=== PATIENT | female | born 1945 | race Caucasian/White ===

== ENCOUNTER 2019-12-06 14:33 | Inpatient (IN) | payer MEDICARE, OTHER ==
[~2019-12-06] VITALS: Ht 160 cm; Wt 59.0 kg
[2019-12-06] MEDS ORDERED: IV NORMAL SALINE 1000 ML BAG IV ONE (14:45)
[2019-12-06] MEDS ORDERED: ACETAMINOPHEN 650 MG SUPP.RECT RC ONE ×2 (14:45→14:52)
[2019-12-06 15:15] LABS: BASOPHILS % (AUTO) 0.2 % (0.0-2.0); HEMATOCRIT 38.8 % (31.2-41.9); HEMOGLOBIN 12.9 g/dL (10.9-14.3); LYMPHOCYTES # (AUTO) 0.5 K/uL (20.0-40.0); LYMPHOCYTES % (AUTO) 7.6 % (20.5-51.5); MEAN CORPUSCULAR HEMOGLOBIN 32.9 uug (24.7-32.8); MEAN CORPUSCULAR HGB CONC 33 g/dL (32.3-35.6); MEAN CORPUSCULAR VOLUME 98.9 fL (75.5-95.3); MONOCYTES # (AUTO) 0.4 K/uL (2.0-10.0); MONOCYTES % (AUTO) 6.1 % (0.0-11.0); NEUTROPHILS # (AUTO) 5.7 K/uL (1.8-8.9); NEUTROPHILS % (AUTO) 86.1 % (38.5-71.5); PLATELET COUNT (AUTO) 111 K/uL (179-408); RED BLOOD CELL COUNT(AUTO) 3.92 MIL/uL (3.63-4.92); WHITE BLOOD COUNT (AUTO) 6.6 K/uL (3.8-11.8)
[2019-12-06 15:24] LABS: CREATININE 0.8 mg/dL (0.6-1.3); POTASSIUM 3.2 mmol/L (3.5-5.1)
[2019-12-06] MEDS ORDERED: SENN-261 PO (15:25)
[2019-12-06] MEDS ORDERED: ACET325T53 PO (15:25)
[2019-12-06] MEDS ORDERED: MELA3TAB41 PO (15:25)
[2019-12-06] MEDS ORDERED: SERT50TA PO (15:25)
[2019-12-06] MEDS ORDERED: RISP1TAB7 PO (15:25)
[2019-12-06] MEDS ORDERED: RISP0.5T5 PO (15:25)
[2019-12-06] MEDS ORDERED: OXYB5TAB16 PO (15:25)
[2019-12-06] MEDS ORDERED: UREA85CR23 TP (15:25)
[2019-12-06] MEDS ORDERED: GABA-532 PO (15:25)
[2019-12-06] MEDS ORDERED: MAGN400O6 PO (15:25)
[2019-12-06] MEDS ORDERED: CRAN425C6 PO (15:25)
[2019-12-06] MEDS ORDERED: MEMA10TA PO (15:25)
[2019-12-06] MEDS ORDERED: LEVO50TA8 PO (15:25)
[2019-12-06] MEDS ORDERED: DIVA500T2 PO (15:25)
[2019-12-06 15:30] LABS: BILIRUBIN,DIRECT 0.1 mg/dL (0.0-0.2); BILIRUBIN,TOTAL 0.5 mg/dL (0.2-1.0)
[2019-12-06 16:00] LABS: *BLOOD, URINE 1+ (NEGATIVE); *CLARITY,URINE CLEAR (CLEAR); *COLOR,URINE DARK YELLOW (YELLOW); *KETONES,URINE 1+ (NEGATIVE); *UROBILINOGEN,URINE 0.2 E.U./dl (NORMAL); LEUKOCYTE ESTERASE ,URINE NEGATIVE (NEGATIVE); NITRITE, URINE NEGATIVE (NEGATIVE); UGLUCOSE NEGATIVE (NEGATIVE)
[2019-12-06] MEDS ORDERED: CEFTRIAXONE 1 G in IV DEXTROSE 5% 50 ML IV ONE (16:00)
[2019-12-06 16:03] LABS: *BILIRUBIN,URIN 1+ (NEGATIVE)
[2019-12-06 16:12] LABS: MUCUS,URINE FEW /LPF (0-FEW); SQUAMOUS EPITHELIAL CELL,UR FEW /HPF (NONE SEEN)
[2019-12-06 16:13] LABS: BACTERIA,URINE MODERATE /HPF (NONE SEEN)
[2019-12-06] MEDS ORDERED: CEFTRIAXONE /D5W 50ML IVPB **ER PYXIS IV ONE (16:15)
--- NOTE | 2019-12-06 17:12 | NUR ---
pt transfered to floor in stable condition. pt remained comfortable, resting, arousable the whole er stay. no sign of distress.
[2019-12-06] MEDS ORDERED: HYDROCODONE/APAP 5-325MG TABLET PO PRN (17:15)
[2019-12-06] MEDS ORDERED: ACETAMINOPHEN 325 MG TABLET PO PRN (17:15)
[2019-12-06] MEDS ORDERED: Z GUARD REMEDY PASTE 57 GM TUBE TOP PRN (17:15)
[2019-12-06] MEDS ORDERED: MAGNESIUM HYDROXIDE 30 ML LIQUID UDC PO PRN (17:15)
[2019-12-06] MEDS ORDERED: ONDANSETRON 4 MG/2 ML VIAL IV PRN (17:15)
--- NOTE | 2019-12-06 17:25 | NUR ---
RECEIVED FOR ADMISSION 74 YEARS OLD FEMALE BY MARLENY TO ROOM 114 WITH DX OF SE[address]IS [address] INTO BED FIXED AND MADE COMFORTABLE PATIENT IS CONFUSED AND DISORIENTED NON VERBAL MAKES NOISES THAT MIMICKS CRYING TURNED AND REPOSITIONED MADE COMFORTABLE WILL CONTINUE TO OBSERVE.
[2019-12-06] MEDS: IV D5 1/2 NS 1000 ML 1,000 ML IV PRN (19:03)
[2019-12-06 20:14] VITALS: BP 100/34
[2019-12-06] MEDS: GABAPENTIN 100 MG CAPSULE PO SCH (21:36)
[2019-12-06] MEDS: Z GUARD REMEDY PASTE 57 GM TUBE TOP SCH (21:37)
[2019-12-06] MEDS: ENOXAPARIN SODIUM 40 MG/0.4 ML DISP.SYRIN SQ SCH (21:39)
[2019-12-07 00:21] VITALS: BP 105/42
[2019-12-07 04:00] VITALS: BP 96/49
[2019-12-07] MEDS: IV D5 1/2 NS 1000 ML 1,000 ML IV PRN ×2 (06:29→18:17)
[2019-12-07] MEDS: LEVOTHYROXINE SODIUM 50 MCG TABLET PO SCH (06:46)
[2019-12-07] MEDS: PANTOPRAZOLE SODIUM 40 MG TABLET.DR PO SCH (06:46)
--- NOTE | 2019-12-07 07:31 | NUR ---
PATIENT IS IN BED ASLEEP WITH EYES CLOSED SEEMS QUIET AT THIS TIME WITH IVF IN PROGRESS ORDERED INFUSING TO HER LEFT FOREARM WITH NO S/S OF INFILTERATION ON SITE.REPOSITIONED FOR COMFORT HEELS FLOATED MADE COMFORTABLE WILL CONTINUE TO OBSERVE.
[2019-12-07] MEDS: SENNOSIDES 1 TABLET PO SCH (08:54)
[2019-12-07] MEDS: SERTRALINE HCL 50 MG TABLET PO SCH (08:54)
[2019-12-07] MEDS: DIVALPROEX 500 MG TABLET.DR PO SCH ×2 (08:56→16:27)
[2019-12-07] MEDS: OXYBUTYNIN CHLORIDE 5 MG TABLET PO SCH (08:57)
[2019-12-07] MEDS: risperiDONE 0.5 MG TABLET PO SCH (08:57)
[2019-12-07] MEDS: MEMANTINE HCL 10 MG TABLET PO SCH ×2 (08:57→16:27)
[2019-12-07] MEDS: Z GUARD REMEDY PASTE 57 GM TUBE TOP SCH ×2 (08:58→21:00)
[2019-12-07 11:24] VITALS: BP 111/48
[2019-12-07] MEDS: risperiDONE 1 MG TABLET PO SCH (12:18)
--- NOTE | 2019-12-07 13:00 | NUR ---
PATIENT ASSISTED SPOON FED LUNCH SHE IS CONFUSED RESISTIVE AT TIMES ATE ABOUT 75% OF HER FOOD SEEMS A LITTLE BIT AWARE REPOSITIONED FOR COMFORT HEELS FLOATED MADE COMFORTABLE WILL CONTINUE TO OBSERVE.
--- NOTE | 2019-12-07 15:11 | NUR ---
CLINICAL PHARMACY NOTE: VANCOMYCIN DOSING Request for vancomycin dosing on 74y/o female 160.02cm 58.96kg for UTI enterococcus Temp 98.4 BUN 21 SCr 0.8 WBC 6.6 Start Vancomycin 1gm ivpb q20hr estimated trough 15.6. Waiting for sensitivity report. If vancomycin to be continue will order trough level prior to 4th dose. Will continue to monitor
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
[2019-12-07 15:33] VITALS: BP 98/44
[2019-12-07] MEDS ORDERED: CEFTRIAXONE 1 G in IV DEXTROSE 5% 50 ML IV SCH (16:00)
[2019-12-07] MEDS: VANCOMYCIN IV 1,000 MG in IV DEXTROSE 5% 250 ML IV SCH (16:40)
--- NOTE | 2019-12-07 18:00 | NUR ---
REMAIN ON ANTIBIOTICS ORDERED WITH NO ADVERSE OR ALLERGIC REACTIONS AT THIS TIME APPETITE WAS FAIR FOR DINNER SLT WAS HERE TO SEE PATIENT STATED UNABLE TO COMPLETE HER EVALUATION SEE HER NOTES.WILL CONTINUE TO OBSERVE AND PROVIDE SAFE AND THERAPEUTIC ENVIRONMENT AT ALL TIMES
[2019-12-07 19:57] VITALS: BP 101/58
[2019-12-07] MEDS: ENOXAPARIN SODIUM 40 MG/0.4 ML DISP.SYRIN SQ SCH (20:59)
[2019-12-07] MEDS: GABAPENTIN 100 MG CAPSULE PO SCH (21:00)
[2019-12-07] MEDS: ZOLPIDEM 5 MG TABLET PO PRN (21:20)
[2019-12-08 04:56] VITALS: BP 102/49
--- NOTE | 2019-12-08 05:11 | NUR ---
patient received lying in bed watching TV. no signs of acute distress and v/s stable throughout shift. safety and comfort measures provided at all times. bed in lowest position, side rails upx2, and bed alarm on. all needs med and medications administered. will endorse care accordingly.
[2019-12-08] MEDS: IV D5 1/2 NS 1000 ML 1,000 ML IV PRN ×2 (05:26→22:25)
[2019-12-08] MEDS: PANTOPRAZOLE SODIUM 40 MG TABLET.DR PO SCH (06:00)
[2019-12-08] MEDS: LEVOTHYROXINE SODIUM 50 MCG TABLET PO SCH (06:00)
--- NOTE | 2019-12-08 07:10 | NUR ---
RECEIVED PATIENT IN BED, ASLEEP, OPENS EYES TO NAME. CONFUSED. NO S/S OF DISTRESS OR PAIN SEEN AT THIS TIME. LT. FA IV INTACT WITH FLUIDS RUNNING. SAFETY AND FALL PREVENTION IN PLACE. CALL LIGHT IN REACH, BED IN LOW AND LOCKED POSITION, SIDE RAILS UP X2. WILL CONTINUE TO MONITOR.
[2019-12-08] MEDS: risperiDONE 0.5 MG TABLET PO SCH (08:34)
[2019-12-08] MEDS: SENNOSIDES 1 TABLET PO SCH (08:34)
[2019-12-08] MEDS: OXYBUTYNIN CHLORIDE 5 MG TABLET PO SCH (08:35)
[2019-12-08] MEDS: SERTRALINE HCL 50 MG TABLET PO SCH (08:35)
[2019-12-08] MEDS: DIVALPROEX 500 MG TABLET.DR PO SCH ×2 (08:36→17:41)
[2019-12-08] MEDS: MEMANTINE HCL 10 MG TABLET PO SCH ×2 (08:36→17:42)
[2019-12-08] MEDS: Z GUARD REMEDY PASTE 57 GM TUBE TOP SCH ×2 (08:37→21:41)
[2019-12-08 11:25] VITALS: BP 113/39
[2019-12-08 11:52] LABS: BASOPHILS % (AUTO) 0.2 % (0.0-2.0); EOSINOPHILS % (AUTO) 0.2 % (0.0-7.0); HEMATOCRIT 36.8 % (31.2-41.9); HEMOGLOBIN 12.3 g/dL (10.9-14.3); LYMPHOCYTES # (AUTO) 1.1 K/uL (20.0-40.0); LYMPHOCYTES % (AUTO) 24.2 % (20.5-51.5); MEAN CORPUSCULAR HEMOGLOBIN 32.8 uug (24.7-32.8); MEAN CORPUSCULAR HGB CONC 33 g/dL (32.3-35.6); MONOCYTES # (AUTO) 0.4 K/uL (2.0-10.0); MONOCYTES % (AUTO) 8.5 % (0.0-11.0); NEUTROPHILS # (AUTO) 3.1 K/uL (1.8-8.9); NEUTROPHILS % (AUTO) 66.9 % (38.5-71.5); PLATELET COUNT (AUTO) 105 K/uL (179-408); RED BLOOD CELL COUNT(AUTO) 3.75 MIL/uL (3.63-4.92); WHITE BLOOD COUNT (AUTO) 4.7 K/uL (3.8-11.8)
[2019-12-08] MEDS: VANCOMYCIN IV 1,000 MG in IV DEXTROSE 5% 250 ML IV SCH (12:01)
[2019-12-08] MEDS: risperiDONE 1 MG TABLET PO SCH (12:01)
[2019-12-08 12:03] LABS: CREATININE 0.6 mg/dL (0.6-1.3); MAGNESIUM 1.9 mg/dL (1.8-2.4); PHOSPHOROUS 2.6 mg/dL (2.5-4.9); POTASSIUM 3.4 mmol/L (3.5-5.1)
[2019-12-08 12:15] LABS: THYROID STIMULATING HORMONE 2.612 mIU/mL (0.358-3.740)
[2019-12-08] MEDS: NITROFURANTOIN/NITROFURAN MAC 100 MG CAPSULE PO SCH ×2 (14:00→21:39)
[2019-12-08 15:10] VITALS: BP 100/50
--- NOTE | 2019-12-08 19:39 | NUR ---
PATIENT IN BED, ASLEEP, OPENS EYES TO NAME. CONFUSED. NO S/S OF DISTRESS OR PAIN SEEN THROUGHOUT SHIFT. SAFETY AND FALL PREVENTION IN PLACE. CALL LIGHT IN REACH, BED IN LOW AND LOCKED POSITION, SIDE RAILS UP X2. WILL REPORT GIVEN TO NIGHT NURSE
--- NOTE | 2019-12-08 20:00 | NUR ---
PATIENT RECEIVED INTO CARE SLEEPING IN BED, RESTING COMFORTABLY. PATIENT HAS NO SIGNS OR SYMPTOMS OF ACUTE DISTRESS OR DISCOMFORT NOTED OR OBSERVED BY NURSE. ALL SAFETY AND FALL PRECAUTION MEASURES ARE IN PLACE. CALL LIGHT AND PERSONAL ITEMS ARE WITHIN REACH AT ALL TIMES. WILL CONTINUE TO MONITOR AND ASSESS.
[2019-12-08 20:46] VITALS: BP 111/50
--- NOTE | 2019-12-08 20:54 | NUR ---
Notified MD Estrella of platelet count of 105 with regard to prescribed lovenox 40mg (0.4mL) and should nurse hold 2100h dose. said okay to give.
[2019-12-08] MEDS: GABAPENTIN 100 MG CAPSULE PO SCH (21:39)
[2019-12-08] MEDS: ENOXAPARIN SODIUM 40 MG/0.4 ML DISP.SYRIN SQ SCH (21:41)
[2019-12-09 05:37] VITALS: BP 117/63
[2019-12-09] MEDS: LEVOTHYROXINE SODIUM 50 MCG TABLET PO SCH (06:22)
[2019-12-09] MEDS: PANTOPRAZOLE SODIUM 40 MG TABLET.DR PO SCH (06:22)
--- NOTE | 2019-12-09 08:00 | NUR ---
RECEIVED PATIENT IN BED, ASLEEP, OPENS EYES TO NAME. CONFUSED. NO S/S OF ACUTE DISTRESS, SOB OR PAIN SEEN AT THIS TIME. LT. FA IV INTACT WITH FLUIDS RUNNING. SAFETY AND FALL PREVENTION IN PLACE. CALL LIGHT IN REACH, BED IN LOW AND LOCKED POSITION, SIDE RAILS UP X2. WILL CONTINUE TO MONITOR FOR SAFETY AND COMFORT.
[2019-12-09] MEDS: SERTRALINE HCL 50 MG TABLET PO SCH (09:25)
[2019-12-09] MEDS: SENNOSIDES 1 TABLET PO SCH (09:25)
[2019-12-09] MEDS: risperiDONE 0.5 MG TABLET PO SCH (09:27)
[2019-12-09] MEDS: DIVALPROEX 500 MG TABLET.DR PO SCH ×2 (09:27→17:26)
[2019-12-09] MEDS: NITROFURANTOIN/NITROFURAN MAC 100 MG CAPSULE PO SCH ×2 (09:27→20:24)
[2019-12-09] MEDS: OXYBUTYNIN CHLORIDE 5 MG TABLET PO SCH (09:28)
[2019-12-09] MEDS: MEMANTINE HCL 10 MG TABLET PO SCH ×2 (09:28→17:26)
[2019-12-09] MEDS: Z GUARD REMEDY PASTE 57 GM TUBE TOP SCH ×2 (09:34→21:13)
[2019-12-09 11:16] VITALS: BP 115/52
--- NOTE | 2019-12-09 12:00 | NUR ---
PATIENT ASSISTED SPOON FED LUNCH SHE IS CONFUSED COMBATIVE AT TIMES ATE ABOUT 75% OF HER FOOD SEEMS A LITTLE BIT AWARE REPOSITIONED FOR COMFORT HEELS FLOATED MADE COMFORTABLE WILL CONTINUE TO OBSERVE.
[2019-12-09] MEDS: IV D5 1/2 NS 1000 ML 1,000 ML IV PRN (12:10)
[2019-12-09] MEDS: risperiDONE 1 MG TABLET PO SCH (12:24)
[2019-12-09 15:10] VITALS: BP 107/50
--- NOTE | 2019-12-09 18:00 | NUR ---
PT RESTING COMFORTABLY IN BED. PT SOMEWHAT CONFUSED. PT RE-ORIENTED. NO ACUTE DISTRESS OR SOB NOTED. BED LOCKED AND IN LOW POSITION. CALL LIGHT WITHIN REACH. PSYCH CONSULT ORDERED BY DR RASMUSSEN. IV PATENT AND FLUSHED. IVF RUNNING. WILL ENDORSE TO INCOMING SHIFT ACCORDINGLY.
--- NOTE | 2019-12-09 20:21 | NUR ---
Patient received into care, sitting up in bed, resting comfortably. Patient has no signs/symptoms of acute distress or discomfort noted or observed by nurse. All safety and fall precaution measures are in place. Call light and personal items are within reach at all times. Will continue to monitor and assess.
[2019-12-09] MEDS: GABAPENTIN 100 MG CAPSULE PO SCH (20:25)
[2019-12-09] MEDS: ZOLPIDEM 5 MG TABLET PO PRN (20:25)
--- NOTE | 2019-12-09 20:30 | NUR ---
Contacted HEBREW TEACHER Delores with regard to prescribed Lovenox 40mg (0.4mL) and patient's plt of 105 which was last drawn on 12/07/2019. Nurse will withhold until further direction by HEBREW TEACHER.
--- NOTE | 2019-12-09 21:30 | NUR ---
Per Delores, he is not water conservationist. Contacted MD Kirkland who advised to d/c lovenox for this patient.
[2019-12-10] MEDS: IV D5 1/2 NS 1000 ML 1,000 ML IV PRN ×2 (01:52→15:25)
[2019-12-10 04:20] VITALS: BP 117/62
--- NOTE | 2019-12-10 05:39 | NUR ---
Called [facility], advised of face sheet fax for psych consult requested by MD Kirkland. Face sheet faxed successfully. Addendum: 12/10/19 at 0540 by CAROLINA PAULSON RN Spoke with JAYME Miller in [facility]
[2019-12-10] MEDS: PANTOPRAZOLE SODIUM 40 MG TABLET.DR PO SCH (06:01)
[2019-12-10] MEDS: LEVOTHYROXINE SODIUM 50 MCG TABLET PO SCH (06:01)
[2019-12-10 06:58] LABS: BILIRUBIN,TOTAL 0.3 mg/dL (0.2-1.0); CREATININE 0.7 mg/dL (0.6-1.3); PHOSPHOROUS 2.9 mg/dL (2.5-4.9); POTASSIUM 3.5 mmol/L (3.5-5.1)
[2019-12-10 07:34] LABS: BASOPHILS % (AUTO) 0.3 % (0.0-2.0); EOSINOPHILS % (AUTO) 0.8 % (0.0-7.0); HEMATOCRIT 34.2 % (31.2-41.9); HEMOGLOBIN 11.7 g/dL (10.9-14.3); LYMPHOCYTES # (AUTO) 1.3 K/uL (20.0-40.0); LYMPHOCYTES % (AUTO) 27.9 % (20.5-51.5); MEAN CORPUSCULAR HEMOGLOBIN 33.1 uug (24.7-32.8); MEAN CORPUSCULAR HGB CONC 34 g/dL (32.3-35.6); MEAN CORPUSCULAR VOLUME 96.8 fL (75.5-95.3); MONOCYTES # (AUTO) 0.4 K/uL (2.0-10.0); MONOCYTES % (AUTO) 7.8 % (0.0-11.0); NEUTROPHILS # (AUTO) 3.1 K/uL (1.8-8.9); NEUTROPHILS % (AUTO) 63.2 % (38.5-71.5); PLATELET COUNT (AUTO) 131 K/uL (179-408); RED BLOOD CELL COUNT(AUTO) 3.53 MIL/uL (3.63-4.92); WHITE BLOOD COUNT (AUTO) 4.8 K/uL (3.8-11.8)
--- NOTE | 2019-12-10 08:00 | NUR ---
Received patient awake in bed. Arousable to name and touch. No s/s of acute distress. IV on L wrist intact with D5 1/2NS running at 75mls/hr. Safety measures implemented. Bed alarm on. Will continue to monitor.
[2019-12-10] MEDS: SENNOSIDES 1 TABLET PO SCH (08:35)
[2019-12-10] MEDS: MEMANTINE HCL 10 MG TABLET PO SCH ×2 (08:35→17:10)
[2019-12-10] MEDS: risperiDONE 0.5 MG TABLET PO SCH (08:35)
[2019-12-10] MEDS: OXYBUTYNIN CHLORIDE 5 MG TABLET PO SCH (08:35)
[2019-12-10] MEDS: DIVALPROEX 500 MG TABLET.DR PO SCH ×2 (08:35→17:10)
[2019-12-10] MEDS: SERTRALINE HCL 50 MG TABLET PO SCH (08:35)
[2019-12-10] MEDS: NITROFURANTOIN/NITROFURAN MAC 100 MG CAPSULE PO SCH (08:35)
[2019-12-10] MEDS: Z GUARD REMEDY PASTE 57 GM TUBE TOP SCH (08:36)
[2019-12-10 11:06] VITALS: BP 129/60
[2019-12-10] MEDS: risperiDONE 1 MG TABLET PO SCH (12:17)
[2019-12-10 15:20] VITALS: BP 105/38
[2019-12-10] MEDS ORDERED: MENT71OI TOP (18:27)
[2019-12-10] MEDS ORDERED: MULT1TAB73 PO (18:27)
[2019-12-10] MEDS ORDERED: NITR100C11 PO (18:27)
[2019-12-10] MEDS ORDERED: ACET325T53 PO (18:27)
[2019-12-10] MEDS ORDERED: PANT40TA2 PO (18:27)
[2019-12-11] MEDS ORDERED: PANT40TA4 PO (01:26)
[2019-12-11] MEDS ORDERED: MENT71OI TP (01:26)
[2019-12-11] MEDS ORDERED: NITR100C6 PO (01:26)
[2019-12-11] MEDS ORDERED: MULT1TAB73 PO (01:26)
--- NOTE | 2019-12-14 13:56 | NUR ---
WOUND CARE CONSULT: DIFFICULT ASSESSMENT DUE TO PT BEING UNCOOPERATIVE AND COMBATIVE AT TIMES. PT PRESENTS WITH SACRAL UNSTAGEABLE ULCER AND INCONTINENCE ASSOCIATED SKIN DAMAGE TO PERIWOUND AREA, PRESENT ON ADMISSION. RECOMMENDATIONS MADE FOR WOUND CARE AND SKIN PROTECTION. DISCUSSED WITH NURSING STAFF. RECOMMEND SURGICAL CONSULT. DR JOVANI SOTOMAYOR NOTIFIED OF CONSULT REQUEST. WILL SEE PRN. GARCIA IN AGREEMENT WITH PLAN OF CARE. Addendum: 12/14/19 at 1404 by DANETTE WEISS RN PLEASE DISREGARD ABOVE NOTE.
== END 2019-12-10 19:30 | DRG 871 ==
LOC: ER 14:33 → TELE3 17:06 → MEDSURG3 12-07 23:05
PROVIDERS: ATTEND Internal Medicine
DX: A41.9 Sepsis, unspecified organism (principal); G92 Toxic encephalopathy; N39.0 Urinary tract infection, site not specified; E44.0 Moderate protein-calorie malnutrition; J44.0 Chronic obstructive pulmonary disease with (acute) lower respiratory infection; D68.59 Other primary thrombophilia; R62.7 Adult failure to thrive; E03.9 Hypothyroidism, unspecified; Z79.890 Hormone replacement therapy; R50.9 Fever, unspecified; Z66 Do not resuscitate; B95.2 Enterococcus as the cause of diseases classified elsewhere; E87.6 Hypokalemia; F32.9 Major depressive disorder, single episode, unspecified; I70.0 Atherosclerosis of aorta; I10 Essential (primary) hypertension; Z87.891 Personal history of nicotine dependence; J20.8 Acute bronchitis due to other specified organisms; Z87.440 Personal history of urinary (tract) infections; Z79.899 Other long term (current) drug therapy; D75.89 Other specified diseases of blood and blood-forming organs; Z74.09 Other reduced mobility; G31.84 Mild cognitive impairment of uncertain or unknown etiology; K21.9 Gastro-esophageal reflux disease without esophagitis
CPT/HCPCS: 36415; 70030-TC; 71045; 83605; 83735; 84100; 84443; 85025; 85730; 87040; 87077; 87086; 87400; 93005; A4663; C1758; G0378; J0696; J1650; J3370; J3490; J7030; J7060

== ENCOUNTER 2019-12-10 20:14 | Inpatient (IN) | payer MEDICARE, OTHER ==
[~2019-12-10] VITALS: Ht 160 cm; Wt 55.8 kg
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
[~2019-12-10 20:14] MED LIST: ACET325T53 PO; CRAN425C6 PO; DIVA500T2 PO; GABA-532 PO; LEVO50TA8 PO; MAGN400O6 PO; MELA3TAB41 PO; MEMA10TA PO; MENT71OI TOP; MULT1TAB73 PO; NITR100C11 PO; OXYB5TAB16 PO; PANT40TA2 PO; RISP0.5T5 PO; RISP1TAB7 PO; SENN-261 PO; SERT50TA PO; UREA85CR23 TP
[2019-12-10] MEDS ORDERED: CLONAZEPAM 0.5 MG TABLET PO SCH (20:30)
[2019-12-10] MEDS ORDERED: MAG HYDROX/AL HYDROX/SIMETH 30 ML LIQUID UDC PO PRN (20:30)
[2019-12-10] MEDS ORDERED: BLOOD SUGAR DIAGNOSTIC 1 EACH STRIP VI ONE (20:30)
[2019-12-10] MEDS ORDERED: MAGNESIUM HYDROXIDE 30 ML LIQUID UDC PO PRN (20:30)
[2019-12-10 21:07] VITALS: BP 134/58
[2019-12-10] MEDS: LORAZEPAM 0.5 MG TABLET PO PRN (21:35)
--- NOTE | 2019-12-10 22:36 | NUR ---
PHARMACY NOTE PRN FOR AGITATION/ANXIETY ADMINISTERED @2135. UNABLE TO SCAN/ LOT# DIFFICULT TO READ. PACKAGE TORN AND DISCARDED.
[2019-12-11] MEDS ORDERED: MENT71OI TP (01:26)
[2019-12-11] MEDS ORDERED: MULT1TAB73 PO (01:26)
[2019-12-11] MEDS ORDERED: NITR100C6 PO (01:26)
[2019-12-11] MEDS ORDERED: PANT40TA4 PO (01:26)
[2019-12-11] MEDS: LORAZEPAM 0.5 MG TABLET PO PRN ×2 (09:01→17:38)
[2019-12-11] MEDS ORDERED: DIVALPROEX 500 MG TABLET.DR PO SCH (17:00)
[2019-12-11] MEDS ORDERED: DIVALPROEX 250 MG TABLET.DR PO SCH ×2 (17:00)
[2019-12-11] MEDS: DIVALPROEX 125 MG TABLET.DR PO SCH (17:37)
[2019-12-11 20:38] VITALS: BP 116/56
[2019-12-11] MEDS: risperiDONE 0.5 MG TABLET PO SCH (21:09)
[2019-12-11] MEDS: TEMAZEPAM 7.5 MG CAPSULE PO PRN (23:34)
[2019-12-12] MEDS: LORAZEPAM 0.5 MG TABLET PO PRN ×2 (06:45→19:27)
[2019-12-12 07:30] VITALS: BP 127/71
[2019-12-12] MEDS: risperiDONE 0.5 MG TABLET PO SCH ×2 (08:00→20:27)
[2019-12-12] MEDS: DIVALPROEX 125 MG TABLET.DR PO SCH ×2 (08:00→16:02)
--- NOTE | 2019-12-12 13:59 | NUR ---
GPS: CALLED AND NOTIFY DR. RASMUSSEN REGARDING [facility]A RESULT WAITING FOR REPLY
--- NOTE | 2019-12-12 14:40 | NUR ---
Received patient up in theo chair this am. Assisted with feedings, vijay care given. Ambulated patient in hallway with standby assist , tolerate well.. Patient went outside for 30 min, continues to be confused and aggressive at times. Easily redirected when having bouts of crying. Patients words are garbled and mostly incomprehensible. Continuing to monitor patient for safety and meet patients needs.
[2019-12-12] MEDS ORDERED: Z GUARD REMEDY PASTE 57 GM TUBE TP SCH (14:45)
[2019-12-12] MEDS ORDERED: Z GUARD REMEDY PASTE 57 GM TUBE TOP PRN (14:45)
[2019-12-12 15:01] VITALS: BP 93/47
[2019-12-12] MEDS: NITROFURANTOIN/NITROFURAN MAC 100 MG CAPSULE PO SCH ×2 (15:06→20:23)
[2019-12-12] MEDS ORDERED: FLUCONAZOLE 100 MG TABLET PO ONE (15:15)
[2019-12-12 20:22] VITALS: BP 129/81
[2019-12-12] MEDS: ACETAMINOPHEN 325 MG TABLET PO PRN (20:26)
[2019-12-12] MEDS: MELATONIN 3 MG TABLET PO SCH (20:27)
[2019-12-12] MEDS: GABAPENTIN 100 MG CAPSULE PO SCH (20:27)
[2019-12-13] MEDS: LEVOTHYROXINE SODIUM 50 MCG TABLET PO SCH (06:07)
[2019-12-13] MEDS: Z GUARD REMEDY PASTE 57 GM TUBE TP PRN (06:35)
[2019-12-13 07:30] VITALS: BP 103/61
--- NOTE | 2019-12-13 08:48 | NUR ---
Received patient asleep in assigned bed. Bed is in low position and locked. Patient is arousable to name and light touch. Patient is confused, disoriented, unable to maintain conversation with this field underwriter. Patient noted to be in bed frequently crying, does not verbalize to this field underwriter reason for crying. Patient requires assistance with ambulation, self care, feeding, and ADL's. Patient is encouraged to communicate her needs appropriately and educated about impulse control. Patient provided with redirection and reality orientation. Will continue to monitor.
[2019-12-13] MEDS ORDERED: Medication Not On Formulary EA (Multivitamins (Multivitamin) 1 EACH) PO SCH (09:00)
[2019-12-13] MEDS: NITROFURANTOIN/NITROFURAN MAC 100 MG CAPSULE PO SCH ×2 (09:23→20:19)
[2019-12-13] MEDS: SENNOSIDES 1 TABLET PO SCH (09:23)
[2019-12-13] MEDS: PANTOPRAZOLE SODIUM 40 MG TABLET.DR PO SCH (09:23)
[2019-12-13] MEDS: risperiDONE 0.25 MG TABLET PO SCH ×2 (09:23→12:57)
[2019-12-13] MEDS: DIVALPROEX 125 MG TABLET.DR PO SCH ×3 (09:23→16:53)
[2019-12-13] MEDS: MULTIVITAMINS,THERAPEUTIC TABLET PO SCH (09:23)
[2019-12-13] MEDS: OXYBUTYNIN CHLORIDE 5 MG TABLET PO SCH (10:17)
--- NOTE | 2019-12-13 13:34 | NUR ---
Social Work/Initial Discharge Note: Patient currently resides at [facility] Address: [address] [place] [address] . Patient will return back to facility upon discharge. SW will continue to work with patient, family, and MD to ensure a safe and proper discharge plan.
--- NOTE | 2019-12-13 13:35 | NUR ---
Social Work/Family Contact: food counter worker spoke with patient son/DPOA Joshua Hernandez ([phone]) who gave collateral information regarding patient's history and current status. Joshua's , Meseret sent this contract technical writer DPOA documentation re-Joshua SIMPSON for all healthcare decisions.
--- NOTE | 2019-12-13 13:44 | NUR ---
Social Work/Firearms Report ([employer]): [employer]ra[employer] Laborer completed and submitted a [employer] firearms report for 5250 grave disability certification. A copy of report has been placed in patient chart.
[2019-12-13 15:21] VITALS: BP 115/68
[2019-12-13] MEDS: LORAZEPAM 0.5 MG TABLET PO PRN (19:18)
[2019-12-13 19:58] VITALS: BP 122/84
[2019-12-13] MEDS: risperiDONE 0.5 MG TABLET PO SCH (20:19)
[2019-12-13] MEDS: GABAPENTIN 100 MG CAPSULE PO SCH (20:19)
[2019-12-13] MEDS: MELATONIN 3 MG TABLET PO SCH (20:20)
[2019-12-14] MEDS: LEVOTHYROXINE SODIUM 50 MCG TABLET PO SCH (06:02)
[2019-12-14] MEDS: LORAZEPAM 0.5 MG TABLET PO PRN ×2 (07:25→14:59)
--- NOTE | 2019-12-14 09:23 | NUR ---
Received patient awake, crying, and restless sitting in chair. Patient is alert and oriented to person only. patient requires reality orientation to time, place, and situation. Patient requires assistance with ADL's and feeding. Patient is unable to make her needs known to staff due to confusion and disorientation. Patient is medication adherent, no adverse reaction noted. Will continue to monitor.
[2019-12-14] MEDS: SENNOSIDES 1 TABLET PO SCH (10:02)
[2019-12-14] MEDS: risperiDONE 0.25 MG TABLET PO SCH ×2 (10:02→12:48)
[2019-12-14] MEDS: PANTOPRAZOLE SODIUM 40 MG TABLET.DR PO SCH (10:02)
[2019-12-14] MEDS: DIVALPROEX 125 MG TABLET.DR PO SCH (10:02)
[2019-12-14] MEDS: OXYBUTYNIN CHLORIDE 5 MG TABLET PO SCH (10:02)
[2019-12-14] MEDS: MULTIVITAMINS,THERAPEUTIC TABLET PO SCH (10:02)
[2019-12-14 11:18] VITALS: BP 104/59
--- NOTE | 2019-12-14 14:04 | NUR ---
WOUND CARE CONSULT: PT PRESENTS WITH SACRAL UNSTAGEABLE ULCER, PRESENT ON ADMISSION. PT IS INCONTINENT. VERY DIFFICULT ASSESSMENT DUE TO PT UNCOOPERATIVE AND COMBATIVE AT TIMES. RECOMMENDATIONS MADE FOR WOUND CARE AND SKIN PROTECTION. DISCUSSED WITH NURSING STAFF. SURGICAL CONSULT RECOMMENDED. DR JOVANI SOTOMAYOR NOTIFIED OF CONSULT REQUEST. WILL SEE PRN. GARCIA IN AGREEMENT WITH PLAN OF CARE.
[2019-12-14 15:00] VITALS: BP 122/62
[2019-12-14] MEDS: DIVALPROEX SPRINKLE 125 MG CAP.SPRINK PO SCH (17:00)
[2019-12-14] MEDS: risperiDONE 0.5 MG TABLET PO SCH (20:42)
[2019-12-14] MEDS: GABAPENTIN 100 MG CAPSULE PO SCH (20:42)
[2019-12-14] MEDS: ACETAMINOPHEN 325 MG TABLET PO PRN (20:42)
[2019-12-14] MEDS: MELATONIN 3 MG TABLET PO SCH (20:43)
--- NOTE | 2019-12-14 22:00 | NUR ---
received to care, lying in bed, yelling intermittently. she calmed down, after taking her bedtime medications, plus PRN tylenol. repositioned q 2 hours, with pillows for support. compliant with snacks, and po fluids. no aggressive behavior noted. as of 0, she appears to be asleep. no distress noted. will continue to monitor closely.
[2019-12-15] MEDS: LORAZEPAM 0.5 MG TABLET PO PRN ×3 (02:58→19:25)
[2019-12-15] MEDS: ACETAMINOPHEN 325 MG TABLET PO PRN (02:58)
--- NOTE | 2019-12-15 06:00 | NUR ---
slept 6.25 hours, total.
[2019-12-15] MEDS: LEVOTHYROXINE SODIUM 50 MCG TABLET PO SCH (06:07)
[2019-12-15 07:30] VITALS: BP 113/49
[2019-12-15] MEDS: PANTOPRAZOLE SODIUM 40 MG TABLET.DR PO SCH (08:14)
[2019-12-15] MEDS: DIVALPROEX SPRINKLE 125 MG CAP.SPRINK PO SCH ×2 (08:14→17:22)
[2019-12-15] MEDS: SENNOSIDES 1 TABLET PO SCH (08:14)
[2019-12-15] MEDS: risperiDONE 0.25 MG TABLET PO SCH ×2 (08:14→12:27)
[2019-12-15] MEDS: OXYBUTYNIN CHLORIDE 5 MG TABLET PO SCH (08:15)
[2019-12-15] MEDS: MULTIVITAMINS,THERAPEUTIC TABLET PO SCH (08:15)
[2019-12-15] MEDS ORDERED: OLANZAPINE 10 MG VIAL IM ONE (13:15)
--- NOTE | 2019-12-15 14:20 | NUR ---
Patient continuously trying to jump out of bed. Walking in hallway very combative. Dr. Sotelo notified and order received for Zyprexa 3mg IM. Patient tolerated injection well. Continuing to monitor patient for safety and monitor respiratory status closely. No acute distress at this time.
--- NOTE | 2019-12-15 18:11 | NUR ---
Patient calmer now. Up in the Lorin chair at nurses station eating dinner. Monitoring for safety.
[2019-12-15 20:00] VITALS: BP 106/60
[2019-12-15] MEDS: MELATONIN 3 MG TABLET PO SCH (21:38)
[2019-12-15] MEDS: risperiDONE 0.5 MG TABLET PO SCH (21:38)
[2019-12-15] MEDS: GABAPENTIN 100 MG CAPSULE PO SCH (21:38)
--- NOTE | 2019-12-15 23:30 | NUR ---
received to care, up in theo chair, yelling intermittently, difficult to redirect. she calmed down, after taking her bedtime medications, plus PRN ativan, at 1924. repositioned q 2 hours, with pillows for support. compliant with snacks, and po fluids. no aggressive behavior noted. as of 2329, she appears to be asleep, in bed. no dsitress noted. will continue to monitor closely.
[2019-12-16] MEDS: LORAZEPAM 0.5 MG TABLET PO PRN ×2 (05:25→20:11)
[2019-12-16] MEDS: ACETAMINOPHEN 325 MG TABLET PO PRN (05:25)
--- NOTE | 2019-12-16 05:25 | NUR ---
pt is now awake, yelling, and restless. assisted with AM care, and shower. PRN ativan was given, at this time. currently up in gerichair, watching tv. will continue to monitor closely.
--- NOTE | 2019-12-16 05:52 | NUR ---
slept 2 hours total. is calmer, now. appears to be falling asleep. no distress noted.
[2019-12-16] MEDS: LEVOTHYROXINE SODIUM 50 MCG TABLET PO SCH (05:53)
[2019-12-16 07:30] VITALS: BP 113/55
[2019-12-16] MEDS: PANTOPRAZOLE SODIUM 40 MG TABLET.DR PO SCH (08:18)
[2019-12-16] MEDS: DIVALPROEX SPRINKLE 125 MG CAP.SPRINK PO SCH ×2 (08:18→16:45)
[2019-12-16] MEDS: risperiDONE 0.25 MG TABLET PO SCH ×2 (08:18→12:11)
[2019-12-16] MEDS: MULTIVITAMINS,THERAPEUTIC TABLET PO SCH (08:18)
[2019-12-16] MEDS: SENNOSIDES 1 TABLET PO SCH (08:18)
[2019-12-16] MEDS: OXYBUTYNIN CHLORIDE 5 MG TABLET PO SCH (08:18)
[2019-12-16] MEDS ORDERED: MIRALAX 17 GM POWD.PACK PO ONE (12:45)
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
[2019-12-16 20:30] VITALS: BP 130/75
[2019-12-16] MEDS: GABAPENTIN 100 MG CAPSULE PO SCH (21:11)
[2019-12-16] MEDS: risperiDONE 0.5 MG TABLET PO SCH (21:11)
[2019-12-16] MEDS: MELATONIN 3 MG TABLET PO SCH (21:11)
--- NOTE | 2019-12-16 22:00 | NUR ---
received to care, up in theo chair, yelling intermittently, difficult to redirect. she calmed down, after taking her bedtime medications, plus PRN ativan, at 2010. assisted to bed, but refused to stay, immediately trying to get up, stating she needs to go to the grocery store. no aggressive behavior noted. as of 2199, she appears to be asleep, in theo chair. repositioned with pillows for support. no distress noted. will continue to monitor closely.
--- NOTE | 2019-12-17 06:00 | NUR ---
slept 5.0 hours, total.
[2019-12-17] MEDS: LEVOTHYROXINE SODIUM 50 MCG TABLET PO SCH (06:27)
[2019-12-17 07:30] VITALS: BP 90/54
[2019-12-17] MEDS: risperiDONE 0.25 MG TABLET PO SCH (08:54)
[2019-12-17] MEDS: SENNOSIDES 1 TABLET PO SCH (08:54)
[2019-12-17] MEDS: PANTOPRAZOLE SODIUM 40 MG TABLET.DR PO SCH (08:55)
[2019-12-17] MEDS: OXYBUTYNIN CHLORIDE 5 MG TABLET PO SCH (08:55)
[2019-12-17] MEDS: MULTIVITAMINS,THERAPEUTIC TABLET PO SCH (08:55)
[2019-12-17] MEDS: DIVALPROEX SPRINKLE 125 MG CAP.SPRINK PO SCH ×3 (08:55→17:03)
[2019-12-17] MEDS ORDERED: BISACODYL 10 MG SUPP.RECT RC PRN (11:00)
[2019-12-17] MEDS ORDERED: MINERAL OIL FLEET ENEMA 133 ML BOTTLE RC PRN (11:00)
[2019-12-17] MEDS ORDERED: MIRALAX 17 GM POWD.PACK PO PRN (11:00)
[2019-12-17] MEDS ORDERED: risperiDONE 0.25 MG TABLET PO SCH (13:00)
[2019-12-17] MEDS: risperiDONE 0.5 MG TABLET PO SCH ×3 (13:38→20:05)
[2019-12-17 16:51] VITALS: BP 110/50
[2019-12-17] MEDS: GABAPENTIN 100 MG CAPSULE PO SCH (20:04)
[2019-12-17] MEDS: MELATONIN 3 MG TABLET PO SCH (20:05)
[2019-12-17 20:45] VITALS: BP 122/61
[2019-12-18] MEDS: TEMAZEPAM 7.5 MG CAPSULE PO PRN ×2 (01:15→23:11)
[2019-12-18] MEDS: Z GUARD REMEDY PASTE 57 GM TUBE TP PRN (01:17)
[2019-12-18] MEDS: LEVOTHYROXINE SODIUM 50 MCG TABLET PO SCH (06:33)
[2019-12-18 07:30] VITALS: BP 110/61
[2019-12-18] MEDS: PANTOPRAZOLE SODIUM 40 MG TABLET.DR PO SCH (08:41)
[2019-12-18] MEDS: SENNOSIDES 1 TABLET PO SCH (08:41)
[2019-12-18] MEDS: DIVALPROEX SPRINKLE 125 MG CAP.SPRINK PO SCH ×3 (08:41→18:08)
[2019-12-18] MEDS: MULTIVITAMINS,THERAPEUTIC TABLET PO SCH (08:41)
[2019-12-18] MEDS: OXYBUTYNIN CHLORIDE 5 MG TABLET PO SCH (08:41)
[2019-12-18] MEDS: risperiDONE 0.5 MG TABLET PO SCH ×4 (08:41→20:11)
[2019-12-18 17:07] VITALS: BP 119/70
[2019-12-18 20:09] VITALS: BP 120/70
[2019-12-18] MEDS: GABAPENTIN 100 MG CAPSULE PO SCH (20:11)
[2019-12-18] MEDS: MELATONIN 3 MG TABLET PO SCH (20:14)
[2019-12-18] MEDS: LORAZEPAM 0.5 MG TABLET PO PRN (21:23)
[2019-12-19] MEDS: LEVOTHYROXINE SODIUM 50 MCG TABLET PO SCH (06:40)
[2019-12-19 07:30] VITALS: BP 133/83
[2019-12-19] MEDS: MULTIVITAMINS,THERAPEUTIC TABLET PO SCH (09:12)
[2019-12-19] MEDS: OXYBUTYNIN CHLORIDE 5 MG TABLET PO SCH (09:12)
[2019-12-19] MEDS: risperiDONE 0.5 MG TABLET PO SCH ×4 (09:12→20:39)
[2019-12-19] MEDS: PANTOPRAZOLE SODIUM 40 MG TABLET.DR PO SCH (09:12)
[2019-12-19] MEDS: SENNOSIDES 1 TABLET PO SCH (09:12)
[2019-12-19] MEDS: DIVALPROEX SPRINKLE 125 MG CAP.SPRINK PO SCH ×3 (09:12→17:38)
[2019-12-19 16:00] VITALS: BP 115/54
[2019-12-19 20:20] VITALS: BP 100/53
[2019-12-19] MEDS: MELATONIN 3 MG TABLET PO SCH (20:39)
[2019-12-19] MEDS: GABAPENTIN 100 MG CAPSULE PO SCH (20:39)
[2019-12-20] MEDS: LEVOTHYROXINE SODIUM 50 MCG TABLET PO SCH (06:44)
--- NOTE | 2019-12-20 06:48 | NUR ---
patient slept for approx 5.30 hrs through the night. Per PROFESSOR OF MANAGEMENT notes, patient has not had a BM in few days. Prune juice was given last night and a dulcolax 10mg supp was given rect. will continue to monitor.
[2019-12-20 07:30] VITALS: BP 125/58
[2019-12-20] MEDS: risperiDONE 0.5 MG TABLET PO SCH ×3 (08:50→17:00)
[2019-12-20] MEDS: SENNOSIDES 1 TABLET PO SCH (08:50)
[2019-12-20] MEDS: DIVALPROEX SPRINKLE 125 MG CAP.SPRINK PO SCH ×3 (08:50→17:00)
[2019-12-20] MEDS: OXYBUTYNIN CHLORIDE 5 MG TABLET PO SCH (08:51)
[2019-12-20] MEDS: PANTOPRAZOLE SODIUM 40 MG TABLET.DR PO SCH (08:51)
[2019-12-20] MEDS: MULTIVITAMINS,THERAPEUTIC TABLET PO SCH (08:51)
--- NOTE | 2019-12-20 12:09 | NUR ---
Social Work Individual Therapy Note: SW met with patient today and provided supportive counseling. Patient presented tearful and overly emotional. This blurb writer attempted to help patient calm and express her concerns. Patient unable to express her needs or the reason why she is crying. Patient speech is unclear and stutters. SW will remain available to patient and provide emotional support.
--- NOTE | 2019-12-20 12:17 | NUR ---
Social Work/Discharge Planning: Science And Operations Officer faxed updated clinicals including progress notes and medication list to Antony at [facility] for review.
[2019-12-20] MEDS: ACETAMINOPHEN 325 MG TABLET PO PRN (14:39)
[2019-12-20] MEDS: LORAZEPAM 0.5 MG TABLET PO PRN (14:39)
[2019-12-20 15:22] VITALS: BP 110/51
[2019-12-20 20:10] VITALS: BP 108/78
[2019-12-20] MEDS ORDERED: risperiDONE 0.5 MG TABLET PO SCH (21:00)
[2019-12-20] MEDS: MELATONIN 3 MG TABLET PO SCH (21:26)
[2019-12-20] MEDS: risperiDONE 1 MG TABLET PO SCH (21:26)
[2019-12-20] MEDS: GABAPENTIN 100 MG CAPSULE PO SCH (21:27)
[2019-12-20] MEDS: Z GUARD REMEDY PASTE 57 GM TUBE TP PRN (22:00)
--- NOTE | 2019-12-20 22:00 | NUR ---
received to care, up in theo chair, calm, and pleasant upon approach. compliant with medications and staff direction. no yelling out or agitation, noted. as of 2200, she appears to be asleep. no distress noted. will continue to monitor closely.
--- NOTE | 2019-12-21 06:00 | NUR ---
slept 6.75 hours, total. assisted with am care, and shower. currently in bed. no distress noted.
[2019-12-21] MEDS: LEVOTHYROXINE SODIUM 50 MCG TABLET PO SCH (06:57)
[2019-12-21 07:36] VITALS: BP 136/86
[2019-12-21 08:06] LABS: BASOPHILS % (AUTO) 0.7 % (0.0-2.0); EOSINOPHILS # (AUTO) 0.1 K/uL (0.0-0.7); EOSINOPHILS % (AUTO) 1.3 % (0.0-7.0); HEMATOCRIT 39.7 % (31.2-41.9); HEMOGLOBIN 13.3 g/dL (10.9-14.3); LYMPHOCYTES # (AUTO) 1.1 K/uL (20.0-40.0); LYMPHOCYTES % (AUTO) 18.6 % (20.5-51.5); MEAN CORPUSCULAR HEMOGLOBIN 32.4 uug (24.7-32.8); MEAN CORPUSCULAR HGB CONC 34 g/dL (32.3-35.6); MEAN CORPUSCULAR VOLUME 96.3 fL (75.5-95.3); MONOCYTES # (AUTO) 0.5 K/uL (2.0-10.0); MONOCYTES % (AUTO) 8.4 % (0.0-11.0); NEUTROPHILS # (AUTO) 4.2 K/uL (1.8-8.9); PLATELET COUNT (AUTO) 213 K/uL (179-408); RED BLOOD CELL COUNT(AUTO) 4.12 MIL/uL (3.63-4.92); WHITE BLOOD COUNT (AUTO) 5.9 K/uL (3.8-11.8)
[2019-12-21 08:20] LABS: BILIRUBIN,TOTAL 0.5 mg/dL (0.2-1.0); CREATININE 0.6 mg/dL (0.6-1.3); POTASSIUM 3.4 mmol/L (3.5-5.1); TOTAL PROTEIN, SERUM 7.8 g/dL (6.4-8.2)
[2019-12-21] MEDS: OXYBUTYNIN CHLORIDE 5 MG TABLET PO SCH (09:32)
[2019-12-21] MEDS: DIVALPROEX SPRINKLE 125 MG CAP.SPRINK PO SCH ×4 (09:32→20:07)
[2019-12-21] MEDS: risperiDONE 0.5 MG TABLET PO SCH ×3 (09:32→16:33)
[2019-12-21] MEDS: PANTOPRAZOLE SODIUM 40 MG TABLET.DR PO SCH (09:32)
[2019-12-21] MEDS: MULTIVITAMINS,THERAPEUTIC TABLET PO SCH (09:32)
[2019-12-21] MEDS: SENNOSIDES 1 TABLET PO SCH (09:32)
[2019-12-21] MEDS ORDERED: POTASSIUM CHLORIDE 20 MEQ POWDER PACKET PO ONE (12:00)
--- NOTE | 2019-12-21 12:54 | NUR ---
Received patient awake, alert only to person in her assigned bed. Patient is anxious, agitated, and cries/yells frequently. Patient is seen speaking and yelling at unknown others. Patient is uncooperative with staff and requires frequent redirection and reality orientation. Patient is unable to participate in education. Patient's safety maintained, bed is in low and locked position. Bed alarm on.
[2019-12-21 16:00] VITALS: BP 101/59
[2019-12-21 20:00] VITALS: BP 152/68
[2019-12-21] MEDS: GABAPENTIN 100 MG CAPSULE PO SCH (20:07)
[2019-12-21] MEDS: risperiDONE 1 MG TABLET PO SCH (20:09)
[2019-12-21] MEDS: MELATONIN 3 MG TABLET PO SCH (20:09)
[2019-12-22] MEDS: LEVOTHYROXINE SODIUM 50 MCG TABLET PO SCH (06:04)
[2019-12-22 07:30] VITALS: BP 113/77
[2019-12-22] MEDS: SENNOSIDES 1 TABLET PO SCH (08:25)
[2019-12-22] MEDS: DIVALPROEX SPRINKLE 125 MG CAP.SPRINK PO SCH ×4 (08:25→20:05)
[2019-12-22] MEDS: risperiDONE 0.5 MG TABLET PO SCH ×2 (08:25→12:17)
[2019-12-22] MEDS: MULTIVITAMINS,THERAPEUTIC TABLET PO SCH (08:25)
[2019-12-22] MEDS: PANTOPRAZOLE SODIUM 40 MG TABLET.DR PO SCH (08:25)
[2019-12-22] MEDS: OXYBUTYNIN CHLORIDE 5 MG TABLET PO SCH (08:26)
--- NOTE | 2019-12-22 15:55 | NUR ---
Urine specimen obtained and sent to lab per MD order. Patient tolerated well . Patient up in chair today, minimal agitation noted. Ambulated patient in [place] with assist. Weak gait. No acute distress today so far.
[2019-12-22 16:00] VITALS: BP 120/62
[2019-12-22 16:26] LABS: *BILIRUBIN,URIN NEGATIVE (NEGATIVE); *BLOOD, URINE NEGATIVE (NEGATIVE); *COLOR,URINE YELLOW (YELLOW); *KETONES,URINE NEGATIVE (NEGATIVE); *UROBILINOGEN,URINE 0.2 E.U./dl (NORMAL); LEUKOCYTE ESTERASE ,URINE NEGATIVE (NEGATIVE); NITRITE, URINE NEGATIVE (NEGATIVE); UGLUCOSE NEGATIVE (NEGATIVE)
[2019-12-22] MEDS ORDERED: risperiDONE 0.5 MG TABLET PO SCH (17:00)
[2019-12-22] MEDS: risperiDONE 1 MG TABLET PO SCH ×2 (17:11→20:05)
[2019-12-22 17:33] LABS: *CLARITY,URINE SLIGHTLY HAZY (CLEAR)
[2019-12-22 17:34] LABS: MUCUS,URINE MANY /LPF (0-FEW); RBC,URINE 0-3 /HPF (0-3); SQUAMOUS EPITHELIAL CELL,UR FEW /HPF (NONE SEEN); URINE AMORPHOUS URATE FEW /HPF; WBC,URINE 0-3 /HPF (0-3)
[2019-12-22] MEDS: MELATONIN 3 MG TABLET PO SCH (20:03)
[2019-12-22] MEDS: GABAPENTIN 100 MG CAPSULE PO SCH (20:05)
[2019-12-22 21:14] VITALS: BP 142/63
[2019-12-23] MEDS: LEVOTHYROXINE SODIUM 50 MCG TABLET PO SCH (06:29)
[2019-12-23 07:30] VITALS: BP 99/54
[2019-12-23] MEDS: DIVALPROEX SPRINKLE 125 MG CAP.SPRINK PO SCH ×4 (08:43→20:22)
[2019-12-23] MEDS: PANTOPRAZOLE SODIUM 40 MG TABLET.DR PO SCH (08:43)
[2019-12-23] MEDS: MULTIVITAMINS,THERAPEUTIC TABLET PO SCH (08:43)
[2019-12-23] MEDS: OXYBUTYNIN CHLORIDE 5 MG TABLET PO SCH (08:43)
[2019-12-23] MEDS: risperiDONE 1 MG TABLET PO SCH ×3 (08:43→20:22)
[2019-12-23] MEDS: SENNOSIDES 1 TABLET PO SCH (08:44)
[2019-12-23] MEDS: Z GUARD REMEDY PASTE 57 GM TUBE TP PRN (16:01)
[2019-12-23 16:31] VITALS: BP 110/52
[2019-12-23] MEDS: LORAZEPAM 0.5 MG TABLET PO PRN (17:53)
[2019-12-23 20:15] VITALS: BP 112/56
[2019-12-23] MEDS: MELATONIN 3 MG TABLET PO SCH (20:22)
[2019-12-23] MEDS: GABAPENTIN 100 MG CAPSULE PO SCH (20:22)
[2019-12-24] MEDS: LEVOTHYROXINE SODIUM 50 MCG TABLET PO SCH (06:18)
--- NOTE | 2019-12-24 06:28 | NUR ---
Patient slept well for a total of 8.0 hours. No complaints were made. Compliant with medications. Assisted with needs. Kept safe and comfortable.
[2019-12-24 07:30] VITALS: BP 112/65
[2019-12-24] MEDS: SENNOSIDES 1 TABLET PO SCH (08:49)
[2019-12-24] MEDS: PANTOPRAZOLE SODIUM 40 MG TABLET.DR PO SCH (08:49)
[2019-12-24] MEDS: DIVALPROEX SPRINKLE 125 MG CAP.SPRINK PO SCH ×4 (08:50→20:26)
[2019-12-24] MEDS: MULTIVITAMINS,THERAPEUTIC TABLET PO SCH (08:50)
[2019-12-24] MEDS: risperiDONE 1 MG TABLET PO SCH ×3 (08:50→20:26)
[2019-12-24] MEDS: OXYBUTYNIN CHLORIDE 5 MG TABLET PO SCH (08:53)
[2019-12-24 15:08] VITALS: BP 119/70
[2019-12-24] MEDS: GABAPENTIN 100 MG CAPSULE PO SCH (20:26)
[2019-12-24] MEDS: MELATONIN 3 MG TABLET PO SCH (20:26)
[2019-12-24] MEDS: NYSTATIN/TRIAMCINOLONE CREAM 15 GM TUBE TOP SCH (20:27)
[2019-12-24 20:29] VITALS: BP 98/54
--- NOTE | 2019-12-24 22:30 | NUR ---
HS meds held d/t decreased BP. Feet elevated and PO fluids given.
[2019-12-25] MEDS: Z GUARD REMEDY PASTE 57 GM TUBE TP PRN ×2 (06:09→12:42)
[2019-12-25] MEDS: LEVOTHYROXINE SODIUM 50 MCG TABLET PO SCH (06:09)
--- NOTE | 2019-12-25 06:43 | NUR ---
Shower given, sacral wound change completed-area cleansed with soap and water, patted dry, Hydrogel appled to wound, Z guard appled to the wound border and surrounding area. Mepilex applied to sacral/coccyx area. Nystatin applied to groin and gluteal areas as per MD order, Pt tolerated well. BP re checked, WNL. In no acute distress.
[2019-12-25 07:30] VITALS: BP 114/50
[2019-12-25] MEDS: OXYBUTYNIN CHLORIDE 5 MG TABLET PO SCH (08:40)
[2019-12-25] MEDS: DIVALPROEX SPRINKLE 125 MG CAP.SPRINK PO SCH ×4 (08:40→20:11)
[2019-12-25] MEDS: risperiDONE 1 MG TABLET PO SCH ×3 (08:40→20:10)
[2019-12-25] MEDS: SENNOSIDES 1 TABLET PO SCH (08:40)
[2019-12-25] MEDS: MULTIVITAMINS,THERAPEUTIC TABLET PO SCH (08:40)
[2019-12-25] MEDS: PANTOPRAZOLE SODIUM 40 MG TABLET.DR PO SCH (08:40)
[2019-12-25] MEDS: NYSTATIN/TRIAMCINOLONE CREAM 15 GM TUBE TOP SCH ×2 (09:00→09:54)
[2019-12-25 16:00] VITALS: BP 132/74
[2019-12-25] MEDS: VALACYCLOVIR HCL 500 MG TABLET PO SCH (20:10)
[2019-12-25] MEDS: MELATONIN 3 MG TABLET PO SCH (20:11)
[2019-12-25] MEDS: GABAPENTIN 100 MG CAPSULE PO SCH (20:11)
[2019-12-25 20:19] VITALS: BP 116/64
[2019-12-26] MEDS: LEVOTHYROXINE SODIUM 50 MCG TABLET PO SCH (06:02)
[2019-12-26 07:30] VITALS: BP 138/56
[2019-12-26] MEDS: DIVALPROEX SPRINKLE 125 MG CAP.SPRINK PO SCH ×4 (08:29→20:00)
[2019-12-26] MEDS: PANTOPRAZOLE SODIUM 40 MG TABLET.DR PO SCH (08:30)
[2019-12-26] MEDS: SENNOSIDES 1 TABLET PO SCH (08:30)
[2019-12-26] MEDS: risperiDONE 1 MG TABLET PO SCH ×3 (08:30→20:00)
[2019-12-26] MEDS: MULTIVITAMINS,THERAPEUTIC TABLET PO SCH (08:30)
[2019-12-26] MEDS: OXYBUTYNIN CHLORIDE 5 MG TABLET PO SCH (08:30)
[2019-12-26] MEDS: VALACYCLOVIR HCL 500 MG TABLET PO SCH ×2 (08:31→20:00)
[2019-12-26] MEDS: NYSTATIN/TRIAMCINOLONE CREAM 15 GM TUBE TOP SCH ×2 (08:31→20:01)
[2019-12-26 16:00] VITALS: BP 110/65
[2019-12-26] MEDS: Z GUARD REMEDY PASTE 57 GM TUBE TP PRN (16:45)
[2019-12-26 20:00] VITALS: BP 140/68
[2019-12-26] MEDS: MELATONIN 3 MG TABLET PO SCH (20:00)
[2019-12-26] MEDS: GABAPENTIN 100 MG CAPSULE PO SCH (20:00)
[2019-12-27] MEDS: LEVOTHYROXINE SODIUM 50 MCG TABLET PO SCH (06:20)
[2019-12-27 07:30] VITALS: BP 126/62
--- NOTE | 2019-12-27 07:52 | NUR ---
Social Work/Discharge Note: Patient will be discharged to [facility] [address] [place] [address] ([phone]). Patient will be provided Ambulance transportation at 11AM. Spoke with Gladis, Admin Coordinator at the facility who states they are ready to accept the patient today. Patient is aware and agreeable with discharge plans. Patient is alert and oriented x2, is unable to plan for self-care at this time, however, is willing to accept care at [facility]. Patient denies any suicidal or homicidal ideation. Patient will follow-up at the facility with Dr. Sotelo Psychiatrist and Dr. Kaufman Machine Sizer. Patient presents with normal mood and congruent affect. Patients son Joshua Hernandez ([phone]) and daughter in law Carl ([phone]) are both aware and agreeable with discharge plans. Addendum: 12/27/19 at 0938 by AMILCAR GARZA Error is snf facility: [facility] [address] [facility] [address] ([phone]). Patient will be provided Ambulance transportation at 12PM. Spoke with max Ayala at the facility who states they are ready to accept the patient today. Patient is aware and agreeable with discharge plans. Patient is alert and oriented x2, is unable to plan for self-care at this time, however, is willing to accept care at [facility]. Patient denies any suicidal or homicidal ideation. Patient will follow-up at the facility with Dr. Sotelo Psychiatrist and Dr. Kaufman Machine Sizer. Patient presents with normal mood and congruent affect. Patients son Joshua Hernandez ([phone]) and daughter in law Meseret ([phone]) are both aware and agreeable with discharge plans.
--- NOTE | 2019-12-27 08:00 | NUR ---
received patient awake in her assigned bed. patient is alert and oriented to person only, requires reality orientation. Bed is in low and locked position, bed alarm on. Patient is unable to verbalize needs to staff. She is in bed frequently crying and yelling to herself. Patient requires assistance with ADL's, self care, and ambulation. patient is medication adherent, no adverse reaction noted. Patient is unable to verbalize to staff if she has any SI/HI, unable to have a linear conversation. Respirations are even and unlabored, no signs of respiratory distress noted. Vital signs are WNL.
[2019-12-27] MEDS: NYSTATIN/TRIAMCINOLONE CREAM 15 GM TUBE TOP SCH (08:48)
[2019-12-27] MEDS: PANTOPRAZOLE SODIUM 40 MG TABLET.DR PO SCH (08:48)
[2019-12-27] MEDS: risperiDONE 1 MG TABLET PO SCH (08:48)
[2019-12-27] MEDS: MULTIVITAMINS,THERAPEUTIC TABLET PO SCH (08:49)
[2019-12-27] MEDS: OXYBUTYNIN CHLORIDE 5 MG TABLET PO SCH (08:49)
[2019-12-27] MEDS: DIVALPROEX SPRINKLE 125 MG CAP.SPRINK PO SCH (08:49)
[2019-12-27] MEDS: SENNOSIDES 1 TABLET PO SCH (08:49)
[2019-12-27] MEDS: VALACYCLOVIR HCL 500 MG TABLET PO SCH (08:49)
--- NOTE | 2019-12-27 11:49 | NUR ---
Patient discharged to [facility] by non-emergency ambulance. Patient accompanied off unit by RN and EMT on a gurney. Patient noted with skin excoriation on sacral region, picture taken on discharge. Wound treatment completed prior to discharge. Patient's belongings inventoried. Report given to SNF. Patient transported off unit with no adverse event. Patient's discharge instructions, medication reconciliation, and discharge packet given to non-emergency ambulance drivers.
== END 2019-12-27 11:15 | DRG 885 ==
LOC: GPS 20:14
PROVIDERS: ADMIT Psychiatry & Neurology Psychosomatic Medicine; ATTEND Internal Medicine
DX: F25.0 Schizoaffective disorder, bipolar type (principal); F01.50 Vascular dementia, unspecified severity, without behavioral disturbance, psychotic disturbance, mood disturbance, and anxiety; E87.0 Hyperosmolality and hypernatremia; D68.59 Other primary thrombophilia; E44.0 Moderate protein-calorie malnutrition; R64 Cachexia; Z87.891 Personal history of nicotine dependence; E03.9 Hypothyroidism, unspecified; K59.00 Constipation, unspecified; K21.9 Gastro-esophageal reflux disease without esophagitis; Z74.09 Other reduced mobility; E87.6 Hypokalemia; L89.156 Pressure-induced deep tissue damage of sacral region; I70.0 Atherosclerosis of aorta; F41.9 Anxiety disorder, unspecified; E86.0 Dehydration; N32.81 Overactive bladder; Z91.19 Patient's noncompliance with other medical treatment and regimen; Z87.440 Personal history of urinary (tract) infections; Z79.899 Other long term (current) drug therapy; I10 Essential (primary) hypertension; D75.89 Other specified diseases of blood and blood-forming organs; Z98.891 History of uterine scar from previous surgery
CPT/HCPCS: 36415; 80164; 85025; 87086; A4663; C1758; J2358